=== PATIENT | female | born 1990 | race Caucasian/White ===

== ENCOUNTER 2016-12-03 10:44 | Emergency (ER) | payer OTHER ==
--- NOTE | 2016-12-03 11:34 | PD ---
HPI Chief Complaint Decreased movements for 2 days Date Seen: Dec 03, 2016 Travel History International Travel<30 Days: No Contact w/Intl Traveler<30Days: No Known Affected Area: No History of Present Illness HPI This is a 26y/o at 19w5d who presents to the [facility] as referred from Dr. Mata's office for evaluation of decreased movements. Pt states no movement for 2 days, prior to which she feels bubble like activity. U/s performed on 12/02/16 in the office, was told it was a female fetus. No vaginal bleeding, leakage of fluid or contractions with some perceived movements. care with Dr. Mata, uncomplicated, no records to review. Para: 0 : 1 History Past Medical History Medical History: Denies Significant Hx Past Surgical History Surgical History: No Previous Surgery Family History Family History: Negative Social History Alcohol Use: No Tobacco Use: No Substance Abuse: No Allergies-Medications (Allergen,Severity, Reaction): Coded Allergies: No Known Allergies (Unverified , 12/03/16) Review of Systems Except as stated in HPI: all other systems reviewed are Neg Physical Exam Narrative GENERAL: Well-nourished, well-developed patient. SKIN: Warm and dry. HEAD: Normocephalic and atraumatic. EYES: No scleral icterus. No injection or drainage. ENT: No nasal drainage noted. Mucous membranes pink. Airway patent. NECK: Supple, trachea midline. No JVD. CARDIOVASCULAR: Regular rate and rhythm without murmurs, gallops, or rubs. RESPIRATORY: Breath sounds equal bilaterally. No accessory muscle use. BREASTS: Bilateral exam showed no masses , no retractions, no nipple discharge. ABDOMEN/GI: Abdomen soft, non-tender, bowel sounds present, no rebound, no guarding Gravid to 20 weeks size GENITOURINARY: VE: deferred Uterine Contractions:None FHT's: +FH on doppler Bedside us: + FM, +FH EXTREMITIES: No cyanosis or edema. BACK: Nontender without obvious deformity. No CVA tenderness. NEUROLOGICAL: Awake and alert. Motor and sensory grossly within normal limits. Five out of 5 muscle strength in all muscle groups. Normal speech. Data Data Vital Signs Reviewed: Yes [facility] Medical Record Reviewed: No Interpretation(s) Normal movement at this gestational age, 19w5d Plan 26y/o at 19w5d, who presented for evaluation of decreased movement. -+FH, +FM on ultrasound Diagnosis Diagnosis: Primary Impression: Decreased movement affecting management of mother, antepartum Disposition: 01 DISCHARGE HOME Condition: Good Patient Instructions: Movement (ED) Wanda Sanchez MD Dec 03, 2016 11:33
== END 2016-12-03 11:38 | disposition home or self-care (01) ==
LOC: HOBED 10:44
DX: O36.8120 Decreased fetal movements, second trimester, not applicable or unspecified (principal); Z3A.19 19 weeks gestation of pregnancy
CPT/HCPCS: 76815

== ENCOUNTER 2017-03-04 21:07 | Emergency (ER) | payer OTHER ==
[2017-03-04] VITALS (10 sets, daily range): BP systolic 128–131; BP diastolic 72–73; PULSE 75–94; RESP 18; TEMP 98.7
[2017-03-04] MEDS ORDERED: LACTATED RINGER'S 1000 ML INJ 1,000 ML IV SCH (21:53)
--- NOTE | 2017-03-04 22:17 | PD ---
HPI Chief Complaint Lower extremity swelling, elevated blood pressure at home, cramping Travel History International Travel<30 Days: No Contact w/Intl Traveler<30Days: No Known Affected Area: No History of Present Illness HPI 26-year-old , IUP at 32.5 care uncomplicated per patient report Patient presents for her lower extremity swelling tonight she reports that she had significant bilateral lower extremity swelling so she took her blood pressure and was 138/93. She called her nurse friend who told her that was high and suggested she come to the hospital or call her doctor. She reports that in the clinic she had 1 borderline elevated blood pressure at that 29 at 30 weeks. She denies any headache, visual changes, right upper quadrant pain, or epigastric pain. She denies any leaking of fluid or vaginal bleeding. She reports good movement. She denies any painful contractions however reports that she has what feels like a strong menstrual cramp every 2-3 hours. She reports she's been having "Jagjit Dueñas" for about the last week. She reports these episodes of tightening are irregular in nature. She denies any other complaints or concerns tonight. Weeks Gestation: 32 Para: 0 : 2 History Past Medical History Medical History: Denies Significant Hx Obstetric History Obstetric History 010 SAB 1 Past Surgical History Narrative Surgical Appendectomy [place] teeth extraction T&A PE tubes Family History Narrative Family History DM Social History Alcohol Use: No Tobacco Use: No Substance Abuse: No Allergies-Medications (Allergen,Severity, Reaction): Coded Allergies: No Known Allergies (Unverified , 12/03/16) Review of Systems Except as stated in HPI: all other systems reviewed are Neg Physical Exam Narrative GENERAL: Well-nourished, well-developed patient. SKIN: Warm and dry. HEAD: Normocephalic and atraumatic. EYES: No scleral icterus. No injection or drainage. ENT: No nasal drainage noted. Mucous membranes pink. Airway patent. NECK: Supple, trachea midline. No JVD. CARDIOVASCULAR: Regular rate and rhythm without murmurs, gallops, or rubs. RESPIRATORY: Breath sounds equal bilaterally. No accessory muscle use. BREASTS: Deferred ABDOMEN/GI: Abdomen soft, non-tender, bowel sounds present, no rebound, no guarding Gravid GENITOURINARY: External Genitalia: intact and normal in appearance. BUS glands grossly normal. Physiologic discharge noted. Grossly normal rugae and no cervical or vaginal masses appreciated. fibronectin obtained. SVE closed/thick/high/ posterior. FHT's: Baseline 130s with moderate long-term variability, good accelerations, no decelerations noted. The patient has a category 1 heart rate tracing and reactive NST. EXTREMITIES: No cyanosis or edema. BACK: Nontender without obvious deformity. NEUROLOGICAL: Awake and alert. Motor and sensory grossly within normal limits. Five out of 5 muscle strength in all muscle groups. Normal speech. DTR 2+, no evidence of clonus Psychiatric: Grossly normal memory and affect Musculoskeletal: Grossly normal range of motion, gait, muscle strength Data Data Orders Orders Vital Signs (Adult) .ON ADMISSION (03/04/17 21:53) ^ Labor Status (03/04/17 21:53) Urinalysis - C+S If Indicated (03/04/17 21:53) ^ Non Stress Test (03/04/17 21:53) Diet Liquid (03/05/17 Breakfast) Cbc No Diff, Includes Plts (03/04/17 21:53) Comprehensive Metabolic Panel (03/04/17 21:53) Uric Acid (03/04/17 21:53) Fibronectin (03/04/17 21:53) Lactated Ringer's 1000 Ml Inj (Lr 1000 M (03/04/17 21:53) Protein Creat Ratio, Random Ur (03/04/17 21:53) MDM Plan Assessment/plan: 1. IUP at 32.5 2. Elevated blood pressure at home: Normal blood pressures here and normal laboratory evaluation, no evidence of preeclampsia, strict preeclampsia precautions 3. contractions: No evidence of labor with closed cervix and negative fibronectin. contractions improved with IV hydration. Encouraged good hydration. Strict labor precautions. 4. Lower extremity edema: Discussed elevating feet/legs, consider decreasing sodium intake 5. Follow-up with Dr. Frazier 2-3 days or sooner if needed 6. well-being: Reassuring testing with reactive NST, FHR reassuring and appropriate for gestational age, kick counts daily 7. Mild hypokalemia with potassium 3.4: Rx 40 mEq of potassium, follow-up in the office Diagnosis Diagnosis: Primary Impression: 32 weeks gestation of Additional Impression: False labor before 37 completed weeks of gestation Disposition: 01 DISCHARGE HOME Condition: Gina Woods MD Mar 04, 2017 22:17
[2017-03-04 22:20] LABS: HEMATOCRIT 34.8 % (35.0-46.0); MEAN CELL VOLUME 88.1 FL (80.0-100.0); MEAN CORPUSCULAR HEMOGLOBIN 29.4 PG (27.0-34.0); MEAN CORPUSCULAR HGB CONC 33.4 % (32.0-36.0); PLATELET COUNT 207 TH/MM3 (150-450); RED BLOOD COUNT 3.95 MIL/MM3 (4.00-5.30); RED CELL DISTRIBUTION WIDTH 13.3 % (11.6-17.2); REVIEW FLAG FINAL; WHITE BLOOD COUNT 13.1 TH/MM3 (4.0-11.0)
[2017-03-04 22:22] LABS: BACTERIA, URINE FEW /hpf; BLOOD, URINE NEG (NEG); COMMENT (UR) CULT NOT INDICATED; CULTURE IF INDICATED CULT NOT INDICATED; GLUCOSE,URINE NEG (NEG); KETONE, URINE NEG (NEG); MUCUS URINE FEW /lpf (OCC); NITRITE,URINE NEG (NEG); PH, URINE 5.5 (5.0-8.5); SQUAMOUS EPITHELIAL CELL URINE 2 /hpf (0-5); URINE COLOR LIGHT-YELLOW (YELLW/STRAW)
[2017-03-04 22:40] LABS: ANION GAP 8 MEQ/L (5-15); BICARBONATE 21.9 MEQ/L (21.0-32.0); BLOOD UREA NITROGEN 4 MG/DL (7-18); CHLORIDE 108 MEQ/L (98-107); GLOMERULAR FILTRATION RATE 200 ML/MIN (>89); POTASSIUM 3.4 MEQ/L (3.5-5.1); SODIUM (NA) 138 MEQ/L (136-145)
[2017-03-04 22:42] LABS: ALT (GPT) 25 U/L (10-53); AST (GOT) 19 U/L (15-37); URIC ACID 2.5 MG/DL (2.6-6.0)
[2017-03-04 22:44] LABS: ALKALINE PHOSPHATASE 94 U/L (45-117); TOTAL BILIRUBIN ADULT 0.2 MG/DL (0.2-1.0)
[2017-03-04] MEDS ORDERED: TERBUTALINE INJ 1 MG/ML AMP ONE (22:54)
[2017-03-04] MEDS ORDERED: POTASSIUM CHLORIDE 20 MEQ CONTROLLED RELEASE TAB PO ONE (23:00)
--- NOTE | 2017-03-04 23:03 | PD ---
History of Present Illness History of Present Illness NST report Indications: IUP at 32 weeks, elevated blood pressure, lower extremity swelling , contractions heart rate baseline in the 130s with moderate long-term variability, good accelerations, and no decelerations noted. Patient is category 1 heart rate tracing is reassuring and appropriate for gestational age and includes a reactive NST Follow-up: Follow-up as clinically indicated Final diagnosis: IUP at 32 weeks, normal blood pressure evaluation here with no evidence of preeclampsia, lower extremity swelling, contractions no evidence of labor Gina Bloom MD Mar 04, 2017 23:03
== END 2017-03-04 23:56 | disposition home or self-care (01) ==
LOC: HOBED 21:07
DX: O47.03 False labor before 37 completed weeks of gestation, third trimester (principal); E87.6 Hypokalemia; Z3A.32 32 weeks gestation of pregnancy
CPT/HCPCS: 59025; 80053; 81001; 82570; 82731; 84156; 84550; 85027; 96372; 99284; J3105; J7120

== ENCOUNTER 2017-04-17 13:17 | Inpatient (IN) | payer OTHER ==
[2017-04-17] VITALS (64 sets, daily range): BP systolic 138; BP diastolic 73; PULSE 76–117; RESP 16–18; TEMP 97.9–98.3
[~2017-04-17] VITALS: Ht 175.3 cm; Wt 99.0 kg
[2017-04-17] MEDS ORDERED: LACTATED RINGER'S 1000 ML INJ 1,000 ML IV PRN (14:52)
[2017-04-17] MEDS ORDERED: CITRIC ACID-SODIUM CITRATE LIQ 30 ML UDC PO SCH (15:00)
[2017-04-17] MEDS ORDERED: OXYTOCIN 30 UNITS-500ML PREMIX 500 ML IV SCH (15:00)
[2017-04-17] MEDS ORDERED: ONDANSETRON HCL 4 MG/2 ML VIAL IV PUSH PRN (15:00)
[2017-04-17] MEDS ORDERED: OXYTOCIN 30 UNITS-500ML PREMIX 500 ML IV ONE (15:00)
[2017-04-17] MEDS ORDERED: LIDOCAINE HCL 1% 50 ML VIAL I-DERMAL PRN (15:00)
[2017-04-17] MEDS ORDERED: SODIUM CHLORID 0.9% 500 ML INJ 500 ML IV PRN (15:00)
[2017-04-17] MEDS ORDERED: MINERAL OIL 10 ML VIAL TOPICAL PRN (15:00)
[2017-04-17] MEDS ORDERED: LIDOCAINE HCL 1% 50 ML VIAL INFIL PRN (15:00)
--- NOTE | 2017-04-17 15:02 | HHI.HP ---
HPI Chief Complaint admit for term labor induction, concern for cholestasis vs PUPPS, new rash/itch hands/feet Date Seen: Apr 17, 2017 Time Seen: 14:50 Travel History International Travel<30 Days: No Contact w/Intl Traveler<30Days: No Known Affected Area: No History of Present Illness HPI 26 yo with EDC 04/24/17, 39w today, female infant, seen in office for routine OB care with new finding of severe itching of palms & soles, rash on abdomen, legs, arms. BP wnl and no proteinuria. Concern for cholestasis and/ or PUPPS. Pt term, favorable Odell score, to L&D for induction. Endorses irregular contractions and pelvic pressure, pain 2/10. No LOF or VB. Good FM. Weeks Gestation: 39 Para: 0 : 1 Miscarriage: 0 : 0 History Past Medical History Narrative Medical negative Obstetric History Obstetric History G1 = EAB (meds) 2013 G2 = current female Past Surgical History Narrative Surgical denies Family History Family History: Negative Social History Alcohol Use: No Tobacco Use: No Substance Abuse: No Allergies-Medications (Allergen,Severity, Reaction): Coded Allergies: No Known Allergies (Unverified , 12/03/16) Review of Systems General / Constitutional: Weight Gain, No: Fever, Chills, Other Eyes: No: Diploplia, Blurred Vision, Visual changes, Pain, Photophobia HENT: No: Headaches, Vertigo, Lightheadedness Cardiovascular: No: Irregular Rhythm, Chest Pain or Discomfort, Palpitations, Tachycardia, Syncope, Varicosities, Edema, Cyanosis Respiratory: No: Cough, Short of Breath, Other Gastrointestinal: No: Nausea, Vomiting, Diarrhea Genitourinary: Pelvic Pain (pressure), No: Decreased Urinary Output, Oliguria Musculoskeletal: No: Limited ROM, Weakness, Cramping, Edema, Pain Skin: Rash, Itching, No Dryness, No Lumps, No Change in Pigmentation, No Change in Nails, No Alopecia, Lesions Neurologic: No: Weakness, Dizziness, Syncope, Focal Abnormalities, Coordination Problem, Headache, Slurred Speech, Seizures Psychiatric: No: Depression, Suicidal Ideations, Homicidal Ideation Endocrine: No: Heat Intolerance, Cold Intolerance, Polydipsia, Polyuria, Other Physical Exam Narrative GENERAL: Well-nourished, well-developed patient. SKIN: Warm and dry. Bright red rash w bumps along abdomen, upper arms & inner thighs; scratch mayers on palms & soles, no rash there HEAD: Normocephalic and atraumatic. EYES: No scleral icterus. No injection or drainage. ENT: No nasal drainage noted. Mucous membranes pink. Airway patent. NECK: Supple, trachea midline. No JVD. CARDIOVASCULAR: Regular rate and rhythm without murmurs, gallops, or rubs. RESPIRATORY: Breath sounds equal bilaterally. No accessory muscle use. BREASTS: deferred ABDOMEN/GI: Abdomen soft, non-tender, bowel sounds present, no rebound, no guarding Gravid to [39] weeks size Fundal Height: [39] GENITOURINARY: 2-3/70/-2 FHT's: 8 BPP in office, vtx EXTREMITIES: No cyanosis or edema. BACK: Nontender without obvious deformity. No CVA tenderness. NEUROLOGICAL: Awake and alert. Motor and sensory grossly within normal limits. Five out of 5 muscle strength in all muscle groups. Normal speech. Caprini VTE Risk Assessment Caprini VTE Risk Assessment: No/Low Risk (score <= 1) VTE Pharm Contraindication: High risk for bleeding Caprini Risk Assessment Model Point Value = 1 Point Value = 2 Point Value = 3 Point Value = 5 Age 41-60 Minor surgery BMI > 25 kg/m2 Swollen legs Varicose veins or History of unexplained or recurrent spontaneous Oral contraceptives or hormone replacement Sepsis (< 1 month) Serious lung disease, including pneumonia (< 1 month) Abnormal pulmonary function Acute myocardial infarction Congestive heart failure (< 1 month) History of inflammatory bowel disease Medical patient at bed rest Age 61-74 Arthroscopic surgery Major open surgery (> 45 min) Laparoscopic surgery (> 45 min) Malignancy Confined to bed (> 72 hours) Immobilizing plaster cast Central venous access Age >= 75 History of VTE Family history of VTE Factor V Leiden Prothrombin [id number] Lupus anticoagulant Anticardiolipin antibodies Elevated serum homocysteine Heparin-induced thrombocytopenia Other congenital or acquired thrombophilia Stroke (< 1 month) Elective arthroplasty Hip, pelvis, or leg fracture Acute spinal cord injury (< 1 month) Prophylaxis Regimen Total Risk Factor Score Risk Level Prophylaxis Regimen 0-1 Low Early ambulation 2 Moderate Order ONE of the following: *Sequential Compression Device (SCD) *Heparin 5000 units SQ BID 3-4 Higher Order ONE of the following medications: *Heparin 5000 units SQ TID *Enoxaparin/Lovenox 40 mg SQ daily (WT < 150 kg, CrCl > 30 mL/min) *Enoxaparin/Lovenox 30 mg SQ daily (WT < 150 kg, CrCl > 10-29 mL/min) *Enoxaparin/Lovenox 30 mg SQ BID (WT < 150 kg, CrCl > 30 mL/min) AND/OR *Sequential Compression Device (SCD) 5 or more Highest Order ONE of the following medications: *Heparin 5000 units SQ TID (Preferred with Epidurals) *Enoxaparin/Lovenox 40 mg SQ daily (WT < 150 kg, CrCl > 30 mL/min) *Enoxaparin/Lovenox 30 mg SQ daily (WT < 150 kg, CrCl > 10-29 mL/min) *Enoxaparin/Lovenox 30 mg SQ BID (WT < 150 kg, CrCl > 30 mL/min) AND *Sequential Compression Device (SCD) Data Data Vital Signs Reviewed: Yes Orders Orders Admit To Inpatient (04/17/17 ) Code Status (04/17/17 14:52) Vital Signs (Adult) .Per protocol (04/17/17 14:52) Activity Oob Ad Nola (04/17/17 14:52) Heart (04/17/17 14:52) Amnioinfusion (04/17/17 14:52) Urinary Catheter Management .ONCE (04/17/17 14:52) Diet Liquid (04/17/17 Dinner) Lactated Ringer's 1000 Ml Inj (Lr 1000 M (04/17/17 14:52) Lactated Ringer's 1000 Ml Inj (Lr 1000 M (04/17/17 14:52) Sodium Chlorid 0.9% 500 Ml Inj (Ns 500 M (04/17/17 15:00) Sodium Chlor 0.9% 1000 Ml Inj (Ns 1000 M (04/17/17 15:12) Lidocaine 1% Inj (50 Ml) (Xylocaine 1% I (04/17/17 15:00) Citric Acid-Sodium Citrate Liq (Bicitra (04/17/17 15:00) Ondansetron Inj (Zofran Inj) (04/17/17 15:00) Fentanyl Inj (Fentanyl Inj) (04/17/17 15:00) Fentanyl Inj (Fentanyl Inj) (04/17/17 15:00) Complete Blood Count With Diff (04/17/17 14:52) Hold Clot (04/17/17 14:52) Abo/Rh Blood Type (04/17/17 14:52) Urinalysis - C+S If Indicated (04/17/17 14:52) Drug Screen, Random Urine (04/17/17 14:52) Resp Oxygen Non Rebreathe Mask (04/17/17 ) ^ Epidural / Intrathecal Infus (04/17/17 14:52) Oxytocin 30 Units-500ml Premix (Pitocin (04/17/17 15:00) Lidocaine 1% Inj (50 Ml) (Xylocaine 1% I (04/17/17 15:00) Light Mineral Oil (Muri-Lube Oil) (04/17/17 15:00) ^ Non Stress Test (04/17/17 14:52) Response To Medication .Post New Med Administration, Reaction (04/17/17 14:52) ^ Discontinue Medication (04/17/17 14:52) Oxytocin Drip (2-2-30) (04/17/17 15:00) Inpatient Certification (04/17/17 ) Specimen To Be Collected PRN (04/17/17 14:52) Specimen To Be Collected PRN (04/17/17 14:52) Comprehensive Metabolic Panel (04/17/17 14:52) Bile Acids Total (04/17/17 14:52) Group B Strep: Negative Assessment/Plan Problem List: (1) Term ICD Codes: Z34.80 - Encounter for supervision of other normal , unspecified trimester Status: Acute (2) Rash and nonspecific skin eruption ICD Codes: R21 - Rash and other nonspecific skin eruption Status: Acute Assessment and Plan 26 yo with giron female IUP at 39wks, new rash, itch palms/soles, concern for cholestasis and/or PUPPS, admit for IOL at term 1) IOL: due to favorable Odell score start with pitocin, r/b/a including risk of failed IOL and need for , pt aware and consents 2) GBS neg 3) rash: order LFTs and bile acids, continue to evaluate; does not appear infectious 4) S>D: EFW >90% with AC >95%; SD precautions 5) dispo: not meeting critera Discharge Planning 2-3d Indira Green MD Apr 17, 2017 15:02
[2017-04-17] MEDS ORDERED: SODIUM CHLOR 0.9% 1000 ML INJ 1,000 ML IV PRN (15:12)
--- NOTE | 2017-04-17 15:12 | HHI.PR ---
DIRECTOR ELECTRONICS Note Note S: pt doing well, having minor cramps, no VB or LOF O: Exam: 3/70/-3/post/medium FHTs: 150s moderate variability, no decls, positive acels TOCO: ctx q1-2 min A/P: 26 yo at 39w0d here today for IOL for suspected cholestasis of preg 1. IUP: Cat 1 tracing - cephalic, GBS neg, EFW 8lbs, on 04/10 = 3777g 95%, post placenta, RONA 12cm. - Female fetus (bob) 2. IOL: secondary to #2, pt tachysystole w/ reassuring tracing, BS of 5, will either use Cervidil or cook depending on if contractions space out. Pt does not subjectively feel these. - Will desire epidural. 3. Rash / itching: could be combination of PUPPs vs cholestasis, CMP WNL, bile acids would return later and give cervix, gestational age and new onset of sx will plan for IOL - Vistaril PRN, start ursodiol empirically for symptoms. 4. 2VC: see above growth, Addendum @ 9002, Pt continues to contract regularly but now every 2-3 min, placed cook cath with 80/80cc now, remove in 12hrs. Allow to eat if FHR cat w/i next hour. Vern Bocanerga MD Apr 17, 2017 15:12
[2017-04-17] MEDS ORDERED: hydrOXYzine PAMOATE 25 MG CAP PO PRN (15:15)
[2017-04-17] MEDS: LACTATED RINGER'S 1000 ML INJ 1,000 ML IV SCH ×2 (15:37→19:29)
[2017-04-17] MEDS ORDERED: PRENTAB7 (15:40)
[2017-04-17 16:24] LABS: AUTOMATED NEUTROPHIL # 9.3 TH/MM3 (1.8-7.7); BASOPHIL # 0.1 TH/MM3 (0-0.2); BASOPHIL % 0.4 % (0.0-2.0); EOSINOPHIL # 0.1 TH/MM3 (0-0.4); EOSINOPHIL % 0.9 % (0.0-4.0); HEMATOCRIT 35.4 % (35.0-46.0); LYMPH % 14.7 % (9.0-44.0); LYMPHOCYTE # 1.8 TH/MM3 (1.0-4.8); MEAN CELL VOLUME 88.5 FL (80.0-100.0); MEAN CORPUSCULAR HEMOGLOBIN 29.2 PG (27.0-34.0); MONO % 7.1 % (0.0-8.0); NEUT % 76.9 % (16.0-70.0); PLATELET COUNT 190 TH/MM3 (150-450); RED CELL DISTRIBUTION WIDTH 13.6 % (11.6-17.2); WHITE BLOOD COUNT 12.1 TH/MM3 (4.0-11.0)
[2017-04-17 16:26] LABS: HEMO FLAGS AUTO DIFF
[2017-04-17 16:46] LABS: BACTERIA, URINE OCC /hpf; BLOOD, URINE NEG (NEG); COMMENT (UR) CULT NOT INDICATED; CULTURE IF INDICATED CULT NOT INDICATED; GLUCOSE,URINE NEG (NEG); KETONE, URINE NEG (NEG); MUCUS URINE FEW /lpf (OCC); NITRITE,URINE NEG (NEG); SQUAMOUS EPITHELIAL CELL URINE 2 /hpf (0-5); URINE COLOR YELLOW (YELLW/STRAW)
[2017-04-17 16:52] LABS: BANDS 2 % (0-6); EOSINOPHILS 1 % (0-4); NEUTROPHIL # MANUAL DIFF 9.4 TH/MM3 (1.8-7.7); POLYS (SEG NEUTROPHILS) 73 % (16-70); WBC DIFF SAMPLE 100
[2017-04-17 16:56] LABS: METAMYELOCYTES 3 % (0-1)
[2017-04-17 16:57] LABS: DOHLE BODIES PRESENT (NONE SEEN); PLATELET ESTIMATE SMEAR NORMAL (NORMAL)
[2017-04-17 16:59] LABS: PLATELET MORPHOLOGY ENLARGED (NORMAL); SCAN/DIFF FINAL DIFF MANUAL
[2017-04-17 18:37] LABS: ALT (GPT) 10 U/L (10-53); ANION GAP 11 MEQ/L (5-15); AST (GOT) 14 U/L (15-37); BICARBONATE 22.5 MEQ/L (21.0-32.0); BLOOD UREA NITROGEN 8 MG/DL (7-18); CHLORIDE 106 MEQ/L (98-107); GLOMERULAR FILTRATION RATE 144 ML/MIN (>89); POTASSIUM 3.4 MEQ/L (3.5-5.1); SODIUM (NA) 139 MEQ/L (136-145)
[2017-04-17 18:40] LABS: ALKALINE PHOSPHATASE 135 U/L (45-117); TOTAL BILIRUBIN ADULT 0.3 MG/DL (0.2-1.0)
[2017-04-17] MEDS ORDERED: URSODIOL 300 MG CAP PO SCH (21:00)
[2017-04-18] VITALS (128 sets, daily range): BP systolic 78–139; BP diastolic 49–94; PULSE 79–189; RESP 18–20; TEMP 97.6–99.3
[2017-04-18] MEDS ORDERED: OXYTOCIN 30 UNITS-500ML PREMIX 500 ML IV SCH ×2 (04:45→13:30)
[2017-04-18] MEDS: LACTATED RINGER'S 1000 ML INJ 1,000 ML IV SCH (04:50)
[2017-04-18] MEDS ORDERED: fentaNYL 2MCG-BUPIV 0.125% INJ 100 ML ONE (07:42)
[2017-04-18] MEDS ORDERED: ePHEDrine/NS 25 MG/5 ML SYR ONE (07:43)
--- NOTE | 2017-04-18 07:44 | HHI.PR ---
VISUAL JOURNALIST Note Note S: pt doing well, feels like her water just broke, patient having more intense contractions. O: Exam: 6 cm/80%/-2. Grossly ruptured, clear fluid FHTs: 140s moderate variability, no decls, positive acels TOCO: ctx q 2-3 min A/P: 26 yo at 39w1d here today for IOL for suspected cholestasis of preg 1. IUP: Cat 1 tracing - cephalic, GBS neg, EFW 8lbs, on 04/10 = 3777g 95%, post placenta, RONA 12cm. - Female fetus (bob) 2. IOL: Status post Cook catheter, SROM clear fluid at 0725, cervix changing, pit at 12 continue to titrate. Desiring epidural. 3. Rash / itching: could be combination of PUPPs vs cholestasis, CMP WNL, bile acids not collected would return later and give cervix, gestational age and new onset of sx will plan for IOL - Vistaril PRN, start ursodiol empirically for symptoms. 4. 2VC: see above Sahra baires Zachary Sloan MD Apr 18, 2017 07:44
--- NOTE | 2017-04-18 13:24 | PD.OB.DELI ---
Weeks gestation: 39 (39w1d) Gest age assessed date: Apr 18, 2017 Gest age assessed time: 12:00 Pt started active labor?: No (was IOL for suspected cholestasis) Medical induction of labor?: Yes Artificial rupture of membrane: No (SROM 0725, clear) Anesthesia: Epidural Episiotomy: None Vaginal Delivery: Normal, Spontaneous Presentation: Occiput anterior Nuchal Cord: None, Other (true knot 2) Delayed cord clamping (45 sec): Yes Shoulder Dystocia: Other (none required) Infant: Female, Single Delivery date: Apr 18, 2017 Delivery time: 12:54 One Minute : 8 Five Minute : 9 Placenta: Spontaneous delivery, Intact (true knot 2.), 3 vessel cord Laceration: 1 deg (repaired with running 3-0 Vicryl) Repair: Vicryl running Estimated blood loss: 200 Additional Information The patient began pushing after the bed was broken down, the head upon was allowed to restitute naturally after delivery with a supported perineum, with gentle downward guidance anterior shoulder was delivered followed by gentle upper guidance for the posterior shoulder, the torso and lower extremities delivered with ease with continued perineal support. The infant had spontaneous cry and was placed on mom's abdomen for skin to skin contact, we allow delayed cord clamping. After the cord was clamped and cut, cord blood was obtained. Pitocin was bolused and with fundal massage the placenta was delivered , there is minimal bleeding from above and uterus was firm. The perineum vagina and cervix were inspected and found to have a first degree laceration and was repaired as above. The patient tolerated the procedure well and was left in the birthing suite with her . Vern Bocanegra MD Apr 18, 2017 13:24
[2017-04-18] MEDS ORDERED: BENZOCAINE 20% TOPICAL SPRAY 60 ML CAN TOPICAL PRN (13:30)
[2017-04-18] MEDS ORDERED: ALUMINUM/MAGNESIUM/SIMETH 30 ML CUP PO PRN (13:30)
[2017-04-18] MEDS ORDERED: ONDANSETRON ODT 4 MG TAB PO PRN (13:30)
[2017-04-18] MEDS ORDERED: ZOLPIDEM TARTRATE 5 MG TAB PO PRN (13:30)
[2017-04-18] MEDS ORDERED: DOCUSATE SODIUM 50 MG/SENNA 8.6 MG TAB PO PRN (13:30)
[2017-04-18] MEDS ORDERED: WITCH HAZEL 50%/GLYCERIN 12.5% 40 PAD JAR TOPICAL PRN (13:30)
[2017-04-18] MEDS ORDERED: oxyCODONE/ACETAMINOPHEN 5 MG/325 MG TAB PO PRN ×2 (13:30)
[2017-04-18] MEDS ORDERED: ACETAMINOPHEN 325 MG TAB PO PRN (13:30)
[2017-04-18] MEDS ORDERED: SODIUM CHLORIDE 0.9% FLUSH 10 ML FLUSH IV FLUSH PRN (13:30)
[2017-04-18] MEDS ORDERED: IBUP-232 PO (13:34)
--- NOTE | 2017-04-18 13:35 | HHI.DCPOC ---
Discharge Care Plan Diagnosis: (1) Normal vaginal delivery (2) Term (3) Rash and nonspecific skin eruption (4) Decreased movement affecting management of mother, antepartum Your Health Problems Are: Vaginal delivery Report Symptoms to Your Doctor -Temperature above 100.5 degrees -Redness, of incision or excessive or foul smelling drainage -Unusual pain or calf pain -Increased vaginal bleeding -Painful or difficulty urinating -Feelings of extreme sadness or anxiety after 2 weeks Goals to Promote Your Health * To prevent worsening of your condition and complications * To maintain your health at the optimal level Directions to Meet Your Goals Take your medications as prescribed Follow your dietary instruction Follow activity as directed Ensure plenty of rest for recovery Drink fluids for hydration Keep your appointments as scheduled Take your immunizations and boosters as scheduled If your symptoms worsen call your PCP, if no PCP go to Urgent Care Center or Emergency Room Smoking is Dangerous to Your Health. Avoid second hand smoke Call the 24-hour crisis hotline for domestic abuse at Vern Bocanegra MD Apr 18, 2017 13:35
[2017-04-18] MEDS: IBUPROFEN 800 MG TAB PO PRN ×2 (13:46→20:59)
[2017-04-18] MEDS ORDERED: DIPHTH/TETANUS/ACEL PERTUSSIS (BOOSTER) 0.5 ML VIAL/PFS IM ONE (16:00)
[2017-04-18] MEDS ORDERED: MEASLES, MUMPS, RUBELLA VACCINE 0.5 ML VIAL SQ ONE (16:00)
[2017-04-18] MEDS ORDERED: SODIUM CHLORIDE 0.9% FLUSH 10 ML FLUSH IV FLUSH SCH (21:00)
[2017-04-19] MEDS: IBUPROFEN 800 MG TAB PO PRN (06:33)
[2017-04-19 08:08] VITALS: BP 112/72; PULSE 91; RESP 16; TEMP 99.2
--- NOTE | 2017-04-19 08:09 | HHI.OB ---
Subjective Post Day: 1 Remarks doing well ambulating, VB slightly > than menses, pain controlled, breast feeding, no complaints. Objective Vitals/I&O Vital Signs Date Time Temp Pulse Resp B/P (MAP) Pulse Ox O2 Delivery O2 Flow Rate FiO2 04/18/17 21:59 18 04/18/17 20:54 99.0 83 18 121/69 (86) 04/18/17 16:15 97.6 98 18 04/18/17 16:15 114/70 (85) 04/18/17 14:30 20 04/18/17 14:15 99.0 20 04/18/17 14:15 101 124/72 (89) 04/18/17 14:01 111 108/94 (99) 04/18/17 13:45 116 120/84 (96) 04/18/17 13:41 20 04/18/17 13:32 97 120/65 (83) 04/18/17 13:30 20 04/18/17 13:26 96 101/74 (83) 04/18/17 13:17 102 78/49 (59) 04/18/17 11:20 111 04/18/17 11:15 113 102/54 (70) 04/18/17 11:15 118 04/18/17 11:05 119 04/18/17 11:00 101 04/18/17 11:00 120 114/72 (86) 04/18/17 10:49 20 04/18/17 10:45 102 04/18/17 10:45 114 113/69 (84) 04/18/17 10:42 18 04/18/17 10:40 113 04/18/17 10:35 107 04/18/17 10:30 119 04/18/17 10:30 113 127/78 (94) 04/18/17 10:25 116 04/18/17 10:20 109 04/18/17 10:16 152 126/71 (89) 04/18/17 10:15 106 04/18/17 10:10 112 04/18/17 10:05 101 04/18/17 10:00 94 114/77 (89) 04/18/17 10:00 18 04/18/17 10:00 90 04/18/17 09:55 87 04/18/17 09:50 94 04/18/17 09:45 102 04/18/17 09:45 94 116/78 (91) 04/18/17 09:40 92 04/18/17 09:35 93 04/18/17 09:31 189 116/77 (90) 04/18/17 09:30 18 04/18/17 09:30 90 04/18/17 09:25 88 04/18/17 09:20 88 04/18/17 09:15 84 04/18/17 09:15 87 110/56 (74) 04/18/17 09:10 95 04/18/17 09:05 96 04/18/17 09:00 90 04/18/17 09:00 89 116/69 (85) Objective Remarks GENERAL: Well-nourished, well-developed patient. CARDIOVASCULAR: Regular rate and rhythm without murmurs, gallops, or rubs. RESPIRATORY: Breath sounds equal bilaterally. No accessory muscle use. ABDOMEN/GI: Abdomen soft, non-tender. Fundus: Firm, non-tender at umbilicus. GENITOURINARY: Light to moderate bleeding. EXTREMITIES: No cyanosis or edema, non-tender, without signs of DVT. Medications and IVs Current Medications Medications (Trade) Dose Ordered Sig/Renny Route Start Time Stop Time Status Last Admin (Vistaril) 25 mg Q6H PRN PO 04/17/17 15:15 04/18/17 13:46 (NS Flush) 2 ml BID IV FLUSH 04/18/17 21:00 (NS Flush) 2 ml UNSCH PRN IV FLUSH 04/18/17 13:30 (Tylenol) 650 mg Q4H PRN PO 04/18/17 13:30 (Motrin) 800 mg Q8H PRN PO 04/18/17 13:30 04/19/17 06:33 (Percocet 5-325 Mg) 1 tab Q4H PRN PO 04/18/17 13:30 (Percocet 5-325 Mg) 2 tab Q4H PRN PO 04/18/17 13:30 (Americaine 20% Top Spr) 1 spray Q4H PRN TOPICAL 04/18/17 13:30 04/19/17 03:05 (Tucks Pads) 1 applic QID PRN TOPICAL 04/18/17 13:30 04/19/17 03:05 (Silvina-Colace) 2 tab Q12H PRN PO 04/18/17 13:30 04/18/17 20:59 (Ambien) 5 mg HS PRN PO 04/18/17 13:30 (Mag-Al Plus Susp Liq) 15 ml Q8H PRN PO 04/18/17 13:30 (Zofran Odt) 4 mg Q6H PRN PO 04/18/17 13:30 Assessment/Plan Problem List: (1) Term ICD Codes: Z34.80 - Encounter for supervision of other normal , unspecified trimester Status: Acute (2) Rash and nonspecific skin eruption ICD Codes: R21 - Rash and other nonspecific skin eruption Status: Acute Assessment and Plan 26 yo s/p TSVD @ 39w, IOL for new rash, itch palms/soles concern for cholestasis 1) PPD #1: doing well, meeting milestones, may d/c home today or tomorrow. due to favorable Odell score start with pitocin, r/b/a including risk of failed IOL and need for , pt aware and consents - discussed expectations and precautions. Discharge Planning 1-2d Vern Bocanegra MD Apr 19, 2017 08:09
== END 2017-04-19 16:25 | disposition home or self-care (01) | DRG 775 ==
LOC: H2EB 13:17 → H1EA 04-18 15:57
PROVIDERS: ADMIT Obstetrics & Gynecology; ATTEND Obstetrics & Gynecology
PROC: 3E0P3VZ Introduction of Hormone into Female Reproductive, Percutaneous Approach (ICD-10-PCS; 2017-04-17)
PROC: 10E0XZZ Delivery of Products of Conception, External Approach (ICD-10-PCS; principal; 2017-04-18)
PROC: 0HQ9XZZ Repair Perineum Skin, External Approach (ICD-10-PCS; 2017-04-18)
DX: O26.62 Liver and biliary tract disorders in childbirth (principal); K83.1 Obstruction of bile duct; R21 Rash and other nonspecific skin eruption; O36.8130 Decreased fetal movements, third trimester, not applicable or unspecified; L29.9 Pruritus, unspecified; O70.0 First degree perineal laceration during delivery; O69.2XX0 Labor and delivery complicated by other cord entanglement, with compression, not applicable or unspecified; O66.0 Obstructed labor due to shoulder dystocia; O99.72 Diseases of the skin and subcutaneous tissue complicating childbirth; Z37.0 Single live birth; Z3A.39 39 weeks gestation of pregnancy
CPT/HCPCS: 80053; 80307; 81001; 82239; 85007; 85027; 86900; 86901; 90715; J2590; J7120; Q0177